=== PATIENT | male | born 1955 | race Caucasian/White ===

== ENCOUNTER 2018-01-16 01:21 | Outpatient (RCR) | payer MEDICAID, SELFPAY ==
[2018-01-16] VITALS (7 sets, daily range): BP systolic 108–138; BP diastolic 64–76; PULSE 50–78; RESP 18; TEMP 36–36.8; O2SAT 94–99
[2018-01-16] MEDS: Normal Saline Flush 10 ML SYR IVP (07:05)
[2018-01-16] MEDS: methylPREDNISolone SUCC 125 MG VIAL 100 MG IVP (07:05)
[2018-01-16] MEDS: diphenhydrAMINE 50 MG/ML VIAL IVP (07:20)
== END 2018-01-17 23:59 | disposition home or self-care (01) ==
LOC: INF 01:21
PROVIDERS: PCP General Practice; Visit Provider General Practice
DX: M06.9 Rheumatoid arthritis, unspecified (principal)
CPT/HCPCS: 96365; 96366; J1200; J2930; J9310

== ENCOUNTER 2018-03-30 00:45 | Outpatient (CLI) | payer MEDICARE, MEDICAID, SELFPAY ==
[2018-03-30 11:41] LABS: CREATININE 1.32 mg/dL (0.70-1.30); Estimated GFR 54.43 (mL/min/1.73m2); Potassium 3.8 mmol/L (3.5-5.1)
[2018-04-02 08:53] LABS: PSA, Screening 1.7 ng/ml (0-4.5)
[2018-04-03 08:58] LABS: Testosterone, Total 612 ng/dL (240-950)
== END 2018-03-30 01:05 ==
PROVIDERS: PCP General Practice; Visit Provider General Practice
DX: E29.1 Testicular hypofunction (principal); Z12.5 Encounter for screening for malignant neoplasm of prostate; I10 Essential (primary) hypertension
CPT/HCPCS: 36415; 84153; 84403; 82565; 84132

== ENCOUNTER 2018-04-06 01:26 | Outpatient (CLI) | payer MEDICARE, MEDICAID, SELFPAY ==
[2018-04-08 15:56] LABS: Testosterone, Total 233 ng/dL (240-950)
== END 2018-04-06 01:46 ==
PROVIDERS: PCP General Practice; Visit Provider General Practice
DX: E29.1 Testicular hypofunction (principal)
CPT/HCPCS: 36415; 84403

== ENCOUNTER → 2018-05-15 09:42 | Outpatient (BNVA) | payer MEDICARE, MEDICAID, SELFPAY | PROVIDERS: PCP General Practice; Visit Provider Urology | DX: N48.6 Induration penis plastica (principal); I10 Essential (primary) hypertension | CPT/HCPCS: 99203; 99214 ==

== ENCOUNTER 2018-05-16 00:47 | Outpatient (RCR) | payer MEDICARE, MEDICAID, SELFPAY ==
[2018-05-16 07:22] VITALS: BP 154/84; PULSE 61; RESP 18; TEMP 37; O2SAT 98
[2018-05-16] MEDS: methylPREDNISolone SUCC 125 MG VIAL 100 MG IVP (07:29)
[2018-05-16] MEDS: diphenhydrAMINE 50 MG/ML VIAL IVP (07:29)
[2018-05-16] MEDS: Normal Saline Flush 10 ML SYR IVP ×2 (07:30→07:40)
[2018-05-16 07:45] VITALS: BP 161/89; PULSE 52; RESP 18; TEMP 36.5; O2SAT 97
[2018-05-16 08:15] VITALS: BP 151/89; PULSE 53; RESP 18; TEMP 36.1; O2SAT 97
[2018-05-16 08:49] VITALS: BP 142/82; PULSE 54; RESP 18; TEMP 36.4; O2SAT 98
[2018-05-16 09:15] VITALS: BP 149/88; PULSE 53; RESP 18; TEMP 36.5; O2SAT 97
[2018-05-16 09:45] VITALS: BP 139/45; PULSE 59; RESP 18; TEMP 36.5; O2SAT 98
== END 2018-05-17 23:59 | disposition home or self-care (01) ==
LOC: INF 00:47
PROVIDERS: PCP General Practice; Visit Provider Internal Medicine
DX: M06.9 Rheumatoid arthritis, unspecified (principal)
CPT/HCPCS: 96365; 96366; J1200; J2930; J9310

== ENCOUNTER → 2018-05-29 08:03 | Outpatient (BNVA) | payer MEDICARE, MEDICAID, SELFPAY | PROVIDERS: PCP General Practice; Visit Provider Urology | DX: N48.6 Induration penis plastica (principal); I10 Essential (primary) hypertension | CPT/HCPCS: 99213 ==

== ENCOUNTER → 2018-07-24 08:46 | Outpatient (BNVA) | payer MEDICARE, MEDICAID, SELFPAY | PROVIDERS: PCP General Practice; Visit Provider Urology | DX: N48.6 Induration penis plastica (principal); I10 Essential (primary) hypertension | CPT/HCPCS: 99213 ==

== ENCOUNTER 2018-09-10 02:13 | Outpatient (RCR) | payer MEDICARE, MEDICAID, SELFPAY ==
[2018-09-10] VITALS (8 sets, daily range): BP systolic 138–165; BP diastolic 77–92; PULSE 53–78; RESP 18; TEMP 35.6–37.1; O2SAT 97–98
[2018-09-10] MEDS: methylPREDNISolone SUCC 125 MG VIAL 100 MG IV (08:07)
[2018-09-10] MEDS: Normal Saline Flush 10 ML SYR IVP (08:08)
[2018-09-10] MEDS: diphenhydrAMINE 50 MG/ML VIAL IV (08:08)
== END 2018-09-16 23:59 | disposition home or self-care (01) ==
LOC: INF 02:13
PROVIDERS: PCP General Practice; Visit Provider General Practice
DX: M06.9 Rheumatoid arthritis, unspecified (principal)
CPT/HCPCS: 96365; 96366; J1200; J2930; J9310

== ENCOUNTER 2019-01-08 01:56 | Outpatient (RCR) | payer MEDICARE, MEDICAID, SELFPAY ==
[2019-01-08] VITALS (9 sets, daily range): BP systolic 134–170; BP diastolic 77–92; PULSE 56–86; RESP 16–19; TEMP 36.1–37.2; O2SAT 95–98
[2019-01-08] MEDS: diphenhydrAMINE 50 MG/ML VIAL IVP (08:39)
[2019-01-08] MEDS: methylPREDNISolone SUCC 125 MG VIAL 100 MG IVP (08:39)
[2019-01-08] MEDS: Normal Saline Flush 10 ML SYR IVP (09:00)
== END 2019-01-17 23:59 | disposition home or self-care (01) ==
LOC: INF 01:56
PROVIDERS: PCP General Practice; Visit Provider Family Medicine
DX: M06.9 Rheumatoid arthritis, unspecified (principal)
CPT/HCPCS: 96365; 96366; J1200; J2930; J9310

== ENCOUNTER → 2019-03-01 08:05 | Outpatient (BNVA) | payer MEDICARE, MEDICAID, SELFPAY | PROVIDERS: PCP General Practice; Referring Provider General Practice; Visit Provider Urology | DX: N48.6 Induration penis plastica (principal); I10 Essential (primary) hypertension | CPT/HCPCS: 54200; 99212 ==

== ENCOUNTER → 2019-03-04 07:51 | Outpatient (BNVA) | payer MEDICARE, MEDICAID, SELFPAY | PROVIDERS: PCP General Practice; Referring Provider General Practice; Visit Provider Urology | DX: N48.6 Induration penis plastica (principal); I10 Essential (primary) hypertension | CPT/HCPCS: 54200; 99212 ==

== ENCOUNTER → 2019-03-07 14:53 | Outpatient (BNVA) | payer MEDICARE, MEDICAID, SELFPAY | PROVIDERS: PCP General Practice; Referring Provider General Practice; Visit Provider Urology | DX: N48.6 Induration penis plastica (principal); I10 Essential (primary) hypertension | CPT/HCPCS: 99212 ==

== ENCOUNTER → 2019-04-22 08:01 | Outpatient (BNVA) | payer MEDICARE, MEDICAID, SELFPAY | PROVIDERS: PCP General Practice; Referring Provider General Practice; Visit Provider Urology | DX: N48.6 Induration penis plastica (principal) | CPT/HCPCS: 99212 ==

== ENCOUNTER → 2019-04-29 09:22 | Outpatient (BNVA) | payer MEDICARE, MEDICAID, SELFPAY | PROVIDERS: PCP General Practice; Referring Provider General Practice; Visit Provider Urology | DX: N48.6 Induration penis plastica (principal) | CPT/HCPCS: 54200; 99212; 96372 ==

== ENCOUNTER → 2019-04-30 13:55 | Outpatient (BNVA) | payer MEDICARE, MEDICAID, SELFPAY | PROVIDERS: PCP General Practice; Referring Provider General Practice; Visit Provider Urology | DX: N48.6 Induration penis plastica (principal) | CPT/HCPCS: 54200; 99212; 96372 ==

== ENCOUNTER → 2019-05-03 13:28 | Outpatient (BNVA) | payer MEDICARE, MEDICAID, SELFPAY | PROVIDERS: PCP General Practice; Referring Provider General Practice; Visit Provider Urology | DX: N48.6 Induration penis plastica (principal) | CPT/HCPCS: 99212 ==

== ENCOUNTER 2019-05-14 02:16 | Outpatient (RCR) | payer MEDICARE, MEDICAID, SELFPAY ==
[2019-05-14] VITALS (9 sets, daily range): BP systolic 138–183; BP diastolic 82–100; PULSE 53–95; RESP 18–19; TEMP 36.1–37; O2SAT 95–99
[2019-05-14] MEDS: methylPREDNISolone SUCC 125 MG VIAL 100 MG IVP (08:33)
[2019-05-14] MEDS: diphenhydrAMINE 50 MG/ML VIAL IVP (08:33)
[2019-05-14] MEDS: Normal Saline Flush 10 ML SYR IVP (08:34)
== END 2019-05-18 23:59 | disposition home or self-care (01) ==
LOC: INF 02:16
PROVIDERS: PCP General Practice; Visit Provider Family Medicine
DX: M06.9 Rheumatoid arthritis, unspecified (principal)
CPT/HCPCS: 96365; 96366; 96374; J1200; J2930; J9312

== ENCOUNTER → 2019-07-16 13:04 | Outpatient (BNVA) | payer MEDICARE, MEDICAID, SELFPAY | PROVIDERS: PCP Family Medicine; Referring Provider General Practice; Visit Provider Urology | DX: N48.6 Induration penis plastica (principal); I10 Essential (primary) hypertension | CPT/HCPCS: 99212; 99441 ==

== ENCOUNTER 2019-09-03 00:48 | Outpatient (RCR) | payer MEDICARE, MEDICAID, SELFPAY ==
[2019-09-03] VITALS (7 sets, daily range): BP systolic 143–157; BP diastolic 83–100; PULSE 50–63; RESP 18–19; TEMP 36.3–36.6; O2SAT 97–100
[2019-09-03] MEDS: Normal Saline Flush 10 ML SYR IVP (08:34)
[2019-09-03] MEDS: diphenhydrAMINE 50 MG/ML VIAL IV (08:34)
[2019-09-03] MEDS: methylPREDNISolone SUCC 125 MG VIAL 100 MG IV (08:34)
== END 2019-09-17 23:59 | disposition home or self-care (01) ==
LOC: INF 00:48
PROVIDERS: PCP Family Medicine; Visit Provider Family Medicine
DX: M06.9 Rheumatoid arthritis, unspecified (principal); N48.6 Induration penis plastica
CPT/HCPCS: 54200; 96365; 96366; 96374; 96375; 96413; 96415; 99212; J1200; J2930; J9312

== ENCOUNTER 2019-09-03 08:00 | Outpatient (CLI) | payer MEDICARE, MEDICAID, SELFPAY | END 2019-09-03 08:20 | PROVIDERS: PCP Family Medicine; Visit Provider Urology | DX: N48.6 Induration penis plastica (principal) | CPT/HCPCS: 54200; 99212 ==

== ENCOUNTER → 2019-09-06 08:05 | Outpatient (BNVA) | payer MEDICARE, MEDICAID, SELFPAY | PROVIDERS: PCP Family Medicine; Referring Provider Family Medicine; Visit Provider Urology | DX: N48.6 Induration penis plastica (principal); I10 Essential (primary) hypertension | CPT/HCPCS: 54200; 99212; 99213 ==

== ENCOUNTER → 2019-09-10 08:36 | Outpatient (BNVA) | payer MEDICARE, MEDICAID, SELFPAY | PROVIDERS: PCP Family Medicine; Referring Provider Family Medicine; Visit Provider Urology | DX: N48.6 Induration penis plastica (principal); I10 Essential (primary) hypertension | CPT/HCPCS: 99212; 99213 ==

== ENCOUNTER → 2019-10-22 13:59 | Outpatient (BNVA) | payer MEDICARE, MEDICAID, SELFPAY | PROVIDERS: PCP Family Medicine; Referring Provider Family Medicine; Visit Provider Urology | DX: N48.6 Induration penis plastica (principal); R35.0 Frequency of micturition; R35.1 Nocturia; I10 Essential (primary) hypertension | CPT/HCPCS: 99213 ==

== ENCOUNTER → 2019-12-03 14:05 | Outpatient (BNVA) | payer MEDICARE, MEDICAID, SELFPAY | PROVIDERS: PCP Family Medicine; Referring Provider Family Medicine; Visit Provider Urology | DX: R35.0 Frequency of micturition (principal); N48.6 Induration penis plastica; I10 Essential (primary) hypertension | CPT/HCPCS: 99213 ==

== ENCOUNTER 2020-01-07 01:00 | Outpatient (RCR) | payer MEDICARE, MEDICAID, SELFPAY ==
[2020-01-07] VITALS (7 sets, daily range): BP systolic 129–167; BP diastolic 75–85; PULSE 54–78; RESP 17–19; TEMP 36.5–37.4; O2SAT 96–100
[2020-01-07] MEDS: diphenhydrAMINE 50 MG/ML VIAL 25 MG IV (08:04)
[2020-01-07] MEDS: methylPREDNISolone SUCC 125 MG VIAL 100 MG IV (08:04)
[2020-01-07] MEDS: Normal Saline Flush 10 ML SYR IVP (08:05)
[2020-01-07] MEDS: riTUXimab-PVVR 1,000 MG in Normal Saline 150 ML 62.5 MG IVPB (08:24)
== END 2020-01-18 23:59 | disposition home or self-care (01) ==
LOC: INF 01:00
PROVIDERS: PCP Family Medicine; Visit Provider Internal Medicine
DX: M05.9 Rheumatoid arthritis with rheumatoid factor, unspecified (principal)
CPT/HCPCS: 96365; 96366; J1200; J2930; Q5119

== ENCOUNTER 2020-04-28 01:50 | Outpatient (RCR) | payer MEDICARE, MEDICAID, SELFPAY ==
[2020-04-28] VITALS (9 sets, daily range): BP systolic 118–164; BP diastolic 68–81; PULSE 49–75; RESP 18–19; TEMP 36–36.7; O2SAT 97–100
[2020-04-28] MEDS: methylPREDNISolone SUCC 125 MG VIAL 100 MG IVP (08:15)
[2020-04-28] MEDS: diphenhydrAMINE 50 MG/ML VIAL 25 MG IVP (08:15)
[2020-04-28] MEDS: Normal Saline Flush 10 ML SYR IVP (08:15)
[2020-04-28] MEDS: riTUXimab-PVVR 1,000 MG in Normal Saline 150 ML 62.5 MG IVPB (08:45)
== END 2020-05-17 23:59 | disposition home or self-care (01) ==
LOC: INF 01:50
PROVIDERS: PCP Family Medicine; Visit Provider Internal Medicine
DX: M05.80 Other rheumatoid arthritis with rheumatoid factor of unspecified site (principal)
CPT/HCPCS: 96365; 96366; J1200; J2930; Q5119

== ENCOUNTER 2020-05-21 15:42 | Outpatient (REF) | payer MEDICARE, MEDICAID, SELFPAY | END 2020-05-21 15:43 | disposition home or self-care (01) | LOC: NCHCN 15:42 | PROVIDERS: PCP Family Medicine; Visit Provider Urology | DX: N40.1 Benign prostatic hyperplasia with lower urinary tract symptoms (principal); N48.6 Induration penis plastica | CPT/HCPCS: 87086 ==

== ENCOUNTER 2020-05-28 03:29 | Outpatient (CLI) | payer MEDICARE, MEDICAID, SELFPAY ==
[2020-05-28 14:08] LABS: Abs Immature Grans 0.03 10^3/uL (0.0-0.06); Absolute Basophil Count 0.08 10^3/uL (0.0-0.2); Absolute Eosinophil Count 0.18 10^3/uL (0.0-0.7); Absolute Lymphocyte Count 1.83 10^3/uL (1.2-3.4); Absolute Monocyte Count 0.79 10^3/uL (0.1-0.8); Absolute Neutrophil Count 4.12 10^3/uL (1.2-6.7); Basophils % 1.1; Eosinophils % 2.6; HGB 16.5 g/dL (13.5-17.5); Immature Grans % 0.4; MCH 31.3 pg (27.0-33.0); MCHC 34.4 % (32.0-36.0); MCV 90.9 fL (80-95); MPV 9.9 fL (8.0-11.0); Monocytes % 11.2; Neutrophils % 58.7; Nucleated RBC 0 %; Platelet Count 269 10^3/uL (130-400); RBC 5.28 10^6/uL (4.36-5.78); RDW 12.3 % (11.8-14.1); RDW-SD 40.7 fL; WBC 7.03 10^3/uL (4.4-10.8)
[2020-05-28 14:23] LABS: ALT 23 U/L (16-63); AST 16 U/L (15-37); Alkaline Phosphatase 68 U/L (46-116); Anion Gap 9.3 mmol/L (3-11); BUN 9 mg/dL (7-18); Bilirubin, Total 0.5 mg/dL (0.2-1.0); CO2 26.7 mmol/L (21.0-32.0); CREATININE 1.1 mg/dL (0.70-1.30); Calcium 8.9 mg/dL (8.5-10.1); Chloride 102 mmol/L (98-107); Glucose 138 mg/dL (74-106); Sodium 138 mmol/L (136-145)
[2020-05-29 10:15] LABS: IgA 108 mg/dL (85-499); IgG 1349 mg/dL (610-1,616); IgM 36 mg/dL (35-242); Kappa Free Light Chain 4.02 mg/dL (0.33-1.94)
[2020-06-01 15:55] LABS: Albumin 58.9 % (55.8-66.1); Comment (See Note); Monoclonal Spike 10.6 % (None Seen); Total Protein 7.5 g/dL (6.3-8.2)
[2020-06-01 16:52] LABS: Immunotyping, Serum (See Note)
== END 2020-05-28 03:30 | disposition home or self-care (01) ==
PROVIDERS: PCP Family Medicine; Visit Provider Internal Medicine Hematology & Oncology
DX: D47.2 Monoclonal gammopathy (principal)
CPT/HCPCS: 36415; 80053; 82784; 83883; 84165; 85025; 86320

== ENCOUNTER 2020-06-05 03:10 | Outpatient (CLI) | payer MEDICARE, MEDICAID, SELFPAY ==
[2020-06-05 17:06] LABS: COVID-19 PCR Negative (Negative)
== END 2020-06-05 03:11 | disposition home or self-care (01) ==
LOC: LBO 03:11
PROVIDERS: PCP Family Medicine; Visit Provider Urology
DX: Z20.822 Contact with and (suspected) exposure to COVID-19 (principal); Z01.818 Encounter for other preprocedural examination
CPT/HCPCS: 87635

== ENCOUNTER 2020-08-20 09:00 | Outpatient (RCR) | payer MEDICARE, MEDICAID, SELFPAY ==
[2020-05-18 00:01] VITALS: BP 134/73; PULSE 51; RESP 18; TEMP 36.2
[2020-08-20] VITALS (9 sets, daily range): BP systolic 124–152; BP diastolic 75–84; PULSE 46–58; RESP 16–20; TEMP 36.3–37.2; O2SAT 96–100
[2020-08-20] MEDS: diphenhydrAMINE 50 MG/ML VIAL 25 MG IVP (08:17)
[2020-08-20] MEDS: methylPREDNISolone SUCC 125 MG VIAL 100 MG IVP (08:17)
[2020-08-20] MEDS: riTUXimab-PVVR 1,000 MG in Normal Saline 150 ML 62.5 MG IVPB (08:32)
[2020-08-20] MEDS: Normal Saline Flush 10 ML SYR IVP (08:40)
[2020-08-20 09:08] LABS: Abs Immature Grans 0.04 10^3/uL (0.0-0.06); Absolute Basophil Count 0.09 10^3/uL (0.0-0.2); Absolute Eosinophil Count 0.37 10^3/uL (0.0-0.7); Absolute Lymphocyte Count 2.17 10^3/uL (1.2-3.4); Absolute Monocyte Count 1.01 10^3/uL (0.1-0.8); Absolute Neutrophil Count 3.52 10^3/uL (1.2-6.7); Basophils % 1.3; Eosinophils % 5.1; HCT 46.2 % (40.0-50.0); HGB 15.7 g/dL (13.5-17.5); Immature Grans % 0.6; Lymphocytes % 30.1; MCH 31.3 pg (27.0-33.0); MCV 92.2 fL (80-95); MPV 10.5 fL (8.0-11.0); Neutrophils % 48.9; Nucleated RBC 0 %; Platelet Count 288 10^3/uL (130-400); RBC 5.01 10^6/uL (4.36-5.78); RDW 12.3 % (11.8-14.1); RDW-SD 42.1 fL
[2020-08-20 09:21] LABS: ALT 21 U/L (16-63); AST 20 U/L (15-37); Alkaline Phosphatase 61 U/L (46-116); Anion Gap 11.4 mmol/L (3-11); BUN 15 mg/dL (7-18); Bilirubin, Total 0.4 mg/dL (0.2-1.0); CO2 26.6 mmol/L (21.0-32.0); CREATININE 1.4 mg/dL (0.70-1.30); Chloride 102 mmol/L (98-107); Estimated GFR 50.55 (mL/min/1.73m2); Glucose 138 mg/dL (74-106); Potassium 4.2 mmol/L (3.5-5.1); Sodium 140 mmol/L (136-145)
[2020-08-21 09:58] LABS: IgA 102 mg/dL (85-499); IgG 1513 mg/dL (610-1,616); IgM 38 mg/dL (35-242); Kappa Free Light Chain 4.99 mg/dL (0.33-1.94)
[2020-08-21 12:01] LABS: Albumin 58.4 % (55.8-66.1); Comment (See Note); Monoclonal Spike 9.9 % (None Seen); Total Protein 7.4 g/dL (6.3-8.2)
[2020-08-21 13:14] LABS: Immunotyping, Serum (See Note)
== END 2020-09-16 23:59 | disposition home or self-care (01) ==
LOC: INF 09:00
PROVIDERS: Internal Medicine Hematology & Oncology; PCP Family Medicine; Visit Provider Internal Medicine
DX: M05.80 Other rheumatoid arthritis with rheumatoid factor of unspecified site; D47.2 Monoclonal gammopathy
CPT/HCPCS: 36415; 80053; 82784; 96365; 96366; 96374; 96375; 83883; 84165; 85025; 86320; J1200; J2930; Q5119

== ENCOUNTER 2020-12-10 01:11 | Outpatient (RCR) | payer MEDICARE, MEDICAID, SELFPAY ==
[2020-09-17 00:03] VITALS: BP 143/79; PULSE 56; RESP 16; TEMP 37.1
[2020-12-10] VITALS (10 sets, daily range): BP systolic 120–136; BP diastolic 50–78; PULSE 53–63; RESP 16–18; TEMP 35.9–36.7; O2SAT 95–98
[2020-12-10] MEDS: Normal Saline Flush 10 ML SYR IVP (08:19)
[2020-12-10] MEDS: methylPREDNISolone SUCC 125 MG VIAL 100 MG IVP (08:21)
[2020-12-10] MEDS: diphenhydrAMINE 50 MG/ML VIAL 25 MG IVP (08:22)
[2020-12-10] MEDS: riTUXimab-PVVR 1,000 MG in Normal Saline 150 ML 62.5 MG IVPB (08:30)
== END 2020-12-17 23:59 | disposition home or self-care (01) ==
LOC: INF 01:11
PROVIDERS: PCP Family Medicine; Visit Provider Internal Medicine
DX: M05.9 Rheumatoid arthritis with rheumatoid factor, unspecified (principal)
CPT/HCPCS: 96365; 96366; J1200; J2930; Q5119

== ENCOUNTER 2021-01-01 02:23 | Outpatient (CLI) | payer MEDICARE, MEDICAID, SELFPAY ==
[2021-01-01 10:33] LABS: Abs Immature Grans 0.02 10^3/uL (0.0-0.06); Absolute Basophil Count 0.08 10^3/uL (0.0-0.2); Absolute Eosinophil Count 0.29 10^3/uL (0.0-0.7); Absolute Monocyte Count 0.83 10^3/uL (0.1-0.8); Absolute Neutrophil Count 2.93 10^3/uL (1.2-6.7); Basophils % 1.2; Eosinophils % 4.5; HCT 46.1 % (40.0-50.0); HGB 15.4 g/dL (13.5-17.5); Immature Grans % 0.3; Lymphocytes % 35.7; MCH 30.9 pg (27.0-33.0); MCHC 33.4 % (32.0-36.0); MCV 92.4 fL (80-95); MPV 9.9 fL (8.0-11.0); Monocytes % 12.9; Neutrophils % 45.4; Nucleated RBC 0 %; Platelet Count 261 10^3/uL (130-400); RBC 4.99 10^6/uL (4.36-5.78); RDW 13.2 % (11.8-14.1); RDW-SD 44.4 fL; WBC 6.45 10^3/uL (4.4-10.8)
[2021-01-01 11:12] LABS: ALT 19 U/L (16-63); AST 14 U/L (15-37); Albumin 4.1 g/dL (3.4-5.0); Alkaline Phosphatase 45 U/L (46-116); Anion Gap 6.3 mmol/L (3-11); BUN 9 mg/dL (7-18); Bilirubin, Total 0.5 mg/dL (0.2-1.0); CO2 29.7 mmol/L (21.0-32.0); CREATININE 1.3 mg/dL (0.70-1.30); Calcium 9.1 mg/dL (8.5-10.1); Chloride 103 mmol/L (98-107); Estimated GFR 55.06 (mL/min/1.73m2); Glucose 147 mg/dL (74-106); Potassium 4.5 mmol/L (3.5-5.1); Sodium 139 mmol/L (136-145); Total Protein 7.5 g/dL (6.4-8.2)
[2021-01-04 10:37] LABS: IgA 94 mg/dL (85-499); IgG 1499 mg/dL (610-1,616); IgM 38 mg/dL (35-242); Lambda Free Light Chain 1.08 mg/dL (0.57-2.63)
[2021-01-04 13:43] LABS: Albumin 60.2 % (55.8-66.1); Comment (See Note); Monoclonal Spike 9.6 % (None Seen); Total Protein 7.7 g/dL (6.3-8.2)
[2021-02-04 14:13] LABS: Immunotyping, Serum (See Note)
== END 2021-01-01 02:24 | disposition home or self-care (01) ==
LOC: LBO 02:23
PROVIDERS: PCP Family Medicine; Visit Provider Internal Medicine Hematology & Oncology
DX: D47.2 Monoclonal gammopathy (principal)
CPT/HCPCS: 36415; 80053; 82784; 83883; 84165; 85025; 86320

== ENCOUNTER 2021-02-10 01:37 | Outpatient (CLI) | payer MEDICARE, MEDICAID, SELFPAY ==
--- NOTE | 2021-02-10 06:30 | DI.US_ITS ---
Exam(s) US AAA SCREENING EXAM: US AAA SCREENING CLINICAL HISTORY: Previous smoker, routine screenING FOR AAA,Z13.6 TECHNIQUE: Ultrasound performed using standard protocol. COMPARISON: US ABDOMEN ULTRASOUND (P) from 09/12/2017 FINDINGS: Limited ultrasound of the abdomen was obtained to evaluate the possibility of abdominal aortic aneury sm. Abdominal aorta is normal diameter throughout, the mid to distal aorta has a maximal diameter ab out 21 millimeters. Right and left common iliac artery are within normal limits in diameter as well, at about 13 and 14 millimeters respectively. No fluid collection retroperitoneum. IMPRESSION: No evidence of abdominal aortic aneurysm. DATA REPOSITORY:
== END 2021-02-10 01:57 ==
PROVIDERS: PCP Family Medicine; Visit Provider Family Medicine
DX: Z13.6 Encounter for screening for cardiovascular disorders (principal)
CPT/HCPCS: 76706

== ENCOUNTER 2021-04-16 03:19 | Outpatient (RCR) | payer MEDICARE, MEDICAID, SELFPAY ==
[2020-12-18 00:16] VITALS: BP 122/68; PULSE 54; RESP 18; TEMP 36
[2021-04-16] VITALS (9 sets, daily range): BP systolic 104–151; BP diastolic 63–89; PULSE 50–74; RESP 16–17; TEMP 36.2–36.6; O2SAT 96–99
[2021-04-16] MEDS: diphenhydrAMINE 50 MG/ML VIAL 25 MG IVP (08:19)
[2021-04-16] MEDS: methylPREDNISolone SUCC 125 MG VIAL 100 MG IVP (08:20)
[2021-04-16] MEDS: Normal Saline Flush 10 ML SYR IVP (08:21)
[2021-04-16] MEDS: riTUXimab-PVVR 1,000 MG in Normal Saline 150 ML 62.5 MG IVPB (08:45)
== END 2021-04-19 23:59 | disposition home or self-care (01) ==
LOC: INF 03:19
PROVIDERS: PCP Family Medicine; Visit Provider Internal Medicine
DX: M05.9 Rheumatoid arthritis with rheumatoid factor, unspecified (principal)
CPT/HCPCS: 96365; 96366; 96374; 96375; J1200; J2930; Q5119

== ENCOUNTER 2021-11-26 00:48 | Outpatient (RCR) | payer MEDICARE, MEDICAID, SELFPAY ==
[2021-11-26] VITALS (8 sets, daily range): BP systolic 121–143; BP diastolic 68–74; PULSE 46–65; RESP 16–17; TEMP 35.8–37.4; O2SAT 96–98
[2021-11-26] MEDS: methylPREDNISolone SUCC 125 MG VIAL 100 MG IVP (09:16)
[2021-11-26] MEDS: diphenhydrAMINE 50 MG/ML VIAL 25 MG IVP (09:18)
[2021-11-26] MEDS: riTUXimab-PVVR 1,000 MG in Normal Saline 150 ML 62.5 MG IVPB (09:22)
[2021-11-26] MEDS: Normal Saline Flush 10 ML SYR IVP (09:34)
== END 2021-12-17 23:59 | disposition home or self-care (01) ==
LOC: INF 00:48
PROVIDERS: PCP Family Medicine; Visit Provider Family Medicine
DX: M05.9 Rheumatoid arthritis with rheumatoid factor, unspecified (principal)
CPT/HCPCS: 96365; 96366; 96374; 96375; J1200; J2930; Q5119